=== PATIENT | female | born 1970 | race Caucasian/White ===

== ENCOUNTER 2019-01-01 08:52 | Outpatient (RCR) | payer SELFPAY ==
[2019-01-01 09:07] VITALS: BP 155/106; PULSE 73; RESP 16; TEMP 36.4; BMI 39.9
[2019-01-01 15:13] LABS: Hematocrit 41.5 % (37-47); Hemoglobin 13.4 g/dl (12.0-15.0); Mean Corp Hgb Conc 32.3 g/gl (32-36); Mean Corpuscular Hgb 27.2 pg (27.0-32.0); Mean Corpuscular Volume 84.3 fL (81-99); Mean Platelet Vol. 11.2 fl (6.2-12.0); Platelet Count 236 K/mm3 (150-450); RBC Distribution Width CV 14.6 % (11.6-14.6); RBC Distribution Width SD 44.1 fl (35.1-43.9); Red Blood Count 4.92 M/mm3 (4.2-5.4); White Blood Count 8.9 K/mm3 (4.4-11.0)
[2019-01-01 15:17] LABS: Scan Indicated on CBC? Y/N NO
[2019-01-01 15:36] LABS: AST(SGOT) 24 U/L (15-37); Alanine Aminotransfer ALT/SGPT 41 U/L (13-56); Albumin, Serum 4.2 g/dL (3.2-5.0); Alkaline Phosphatase 37 U/L (45-117); Anion Gap 8 (5-15); BUN 9 mg/dL (7-18); Calcium,Total 9.5 mg/dL (8.5-10.1); Chloride 105 mmol/L (98-107); Creatinine, Serum 0.69 mg/dL (0.55-1.02); EST Glomerular Filtration Rate 97 mL/min (>60); Est Glom Filt Rate - Afr Amer 117 mL/min (>60); Estimated Creatinine Clearance 91.67 ml/min; Globulin 4.2 g/dL (2.2-4.2); Glucose 77 mg/dL (74-106); Potassium 4.1 mmol/L (3.5-5.1); Protein, Total 8.4 g/dL (6.4-8.2); Sodium Level 142 mmol/L (136-145)
[2019-01-01 15:37] LABS: Hemoglobin A1c 6.1 % (4.2-6.3)
--- NOTE | 2019-01-01 20:13 | PCM.WC.HP ---
(1) Ulcer of left lower extremity with fat layer exposed Status: Chronic Current Visit: Yes Code(s): L97.922 - Non-pressure chronic ulcer of unspecified part of left lower leg with fat layer exposed (2) Varicose veins of both lower extremities Status: Chronic Current Visit: Yes Code(s): I83.93 - Asymptomatic varicose veins of bilateral lower extremities (3) Bilateral lower extremity edema Status: Chronic Current Visit: Yes Code(s): R60.0 - Localized edema History of Present Illness Date of Service: 01/01/19 Chief Complaint: Nonhealing left lower extremity ulcer History of Wound: Ms. Barber is a 48-year-old who is in a stable state of health until about 6 months ago when she noted a left lower extremity ulcer. She denies any known precipitating factor. Initially started small and progressively increased to current size. Has been trying some wound care at home without any sustainable benefit. She denies any known history of diabetes mellitus. History of varicose veins with occasional lower extremity swelling. She also denies any known history of peripheral arterial disease. No tobacco abuse. Feels well otherwise. Past Medical History Past Medical History: Chronic Problems Ulcer of left lower extremity with fat layer exposed (Chronic) Varicose veins of both lower extremities (Chronic) Bilateral lower extremity edema (Chronic) Allergies/Adverse Reactions: Allergies procaine [From Novocain] Allergy (Verified 01/01/19 09:33) Other Home Medications: Ambulatory Orders Medication Instructions Recorded Amoxicillin 500 mg 01/01/19 Smoking Status: Never smoker Review of Systems Constitutional: Denies: Anorexia, Chills, Fever Eyes: Denies: Blurred vision, Pain, Redness HEENT: Denies: Difficulty Swallowing Cardiovascular: Denies: Chest Pain, Chest Pressure Respiratory: Denies: Hemoptysis Gastrointestinal: Denies: Abdominal Pain, Hematemesis, Vomiting Skin: Denies: Jaundice - Physical Exam Vital Signs Temp Pulse Resp BP 97.6 F L 73 16 155/106 H 01/01/19 09:07 01/01/19 09:07 01/01/19 09:07 01/01/19 09:07 General: Alert, Oriented x3, Cooperative, No apparent distress HEENT: Atraumatic, Normocephalic Oral: Moist Mucosa Neck: Supple Lungs: Normal air movement Cardiovascular: Regular rate, Regular Rhythm, Normal S1, Normal S2 Abdomen: Soft, Non Tender, Obese Extremities: No cyanosis, Edema Skin: Ulcer/ Wound Wound Measurements and Assessment WC - Nurse 1 - General Ulcer Measurement Start: 01/01/19 09:02 Freq: Status: Active Protocol: Activity Type Activity Date Activity User E-Sign Co-Sign Detail Recorded Client Recorded Date Recorded By Document 01/01/19 09:07 [facility] [id number] 01/01/19 09:28 [facility] 01/01/19 09:07 Wound Center Nurse 1 [Ulcer Assessment] #2- LT MEDIAL LE INFERIOR -Combined with other wound No -Current Size (cm) - Length 1.8 -Current Size (cm) - Width 1 -Current Size (cm) - Depth 0.1 -Total Square Cm 1.8 -Date of Last Picture (Recall this 01/01/19 field) -Photo Taken Yes -Epithelialization None Present -Tunneling No -Undermining/Tunneling No -Circular Undermining No -Exudate Amt None Present -Wound Margin Flat & Intact -Texture (Sandi-wound Skin Appearance) Assessed, Scarring -Moisture (Sandi-wound Skin Appearance Assessed,Dry/ ) Scaly -Color (Sandi-wound Skin Appearance) Assessed, Erythema -Temperature (Sandi-wound Skin No Abnormality Appearance) (Pt Warm) -Tenderness on Palpation (Sandi-wound No Skin Appearance) -Ulcer Cleansing Rinsed/ Irrigated with Saline -Foul Odor after Cleansing No #1- LT MEDIAL LE SUPERIOR -Combined with other wound No -Current Size (cm) - Length 0.8 -Current Size (cm) - Width 1.3 -Current Size (cm) - Depth 0.1 -Total Square Cm 1.04 -Date of Last Picture (Recall this 01/01/19 field) -Photo Taken Yes -Epithelialization None Present -Tunneling No -Undermining/Tunneling No -Circular Undermining No -Exudate Amt Small -Exudate Type Serous -Wound Margin Flat & Intact -Granulation Amt Medium (34-66%) -Granulation Quality Red -Slough/Fibrin Yes -Necrosis Amt Medium (34-66%) -Necrotic Tissue Type Adherent Slough -Texture (Sandi-wound Skin Appearance) Assessed, Scarring -Moisture (Sandi-wound Skin Appearance Assessed,Dry/ ) Scaly -Color (Sandi-wound Skin Appearance) Assessed, Erythema -Temperature (Sandi-wound Skin No Abnormality Appearance) (Pt Warm) -Tenderness on Palpation (Sandi-wound Yes Skin Appearance) -Ulcer Cleansing Rinsed/ Irrigated with Saline -Foul Odor after Cleansing No [Edema Assessment] -Lower Limb Edema Present Yes -Right Calf (cm) 46.4 -Right Ankle (cm) 24.1 -Left Calf (cm) 44.7 -Left Ankle (cm) 27 WC - Nurse 2 - General Ulcer CM Notes Start: 01/01/19 09:02 Freq: Status: Active Protocol: Activity Type Activity Date Activity User E-Sign Co-Sign Detail Recorded Client Recorded Date Recorded By Document 01/01/19 10:10 MW [id number] 01/01/19 10:14 MW 01/01/19 10:10 Wound Center Nurse 2 [Procedure/Treatment] #2- LT MEDIAL LE INFERIOR -Time 10:10 -Correct Patient Yes -Correct Side, Site, Position Yes -Correct Procedure Yes -Procedure Performed No -Post Debridement Size (cm) - Length 0 -Post Debridement Size (cm) - Width 0 -Post Debridement Size (cm) - Depth 0 -Total Square Cm 0 -Wound/Ulcer Outcome Healed- Epithelialized -Ulcer Cleansing Not Cleansed -Foul Odor after Cleansing No -Bioengineered Tissue No -Bleeding Controlled with NA -Treatment Response Procedure Tolerated Well #1- LT MEDIAL LE SUPERIOR -Time 10:11 -Correct Patient Yes -Correct Side, Site, Position Yes -Correct Procedure Yes -Procedure Performed Yes -Type of Procedure Debridement -Clinical Debridement Subcutaneous -Post Debridement Size (cm) - Length 1.1 -Post Debridement Size (cm) - Width 1.7 -Post Debridement Size (cm) - Depth 0.1 -Total Square Cm 1.87 -Wound/Ulcer Outcome Not Healed -Ulcer Cleansing Rinsed/ Irrigated with Saline -Foul Odor after Cleansing No -Bioengineered Tissue No -Bleeding Controlled with Pressure -Offloading No -Treatment Response Procedure Tolerated Well [See Physician Procedure note for Specifics] Pain Scale: 0-10 Numeric [Pain] -Is Patient Pain Free? Yes Neurological: Cranial nerves II-XII grossly intact Psych/Mental Status: Normal Affect Debridement Note Post-Debridement Measurements/Treatment [id number] - Nurse 2 - General Ulcer CM Notes Start: 01/01/19 09:02 Freq: Status: Active Protocol: Activity Type Activity Date Activity User E-Sign Co-Sign Detail Recorded Client Recorded Date Recorded By Document 01/01/19 10:10 MW [id number] 01/01/19 10:14 MW 01/01/19 10:10 Wound Center Nurse 2 #2- LT MEDIAL LE INFERIOR -Time 10:10 -Correct Patient Yes -Correct Side, Site, Position Yes -Correct Procedure Yes -Procedure Performed No -Post Debridement Size (cm) - Length 0 -Post Debridement Size (cm) - Width 0 -Post Debridement Size (cm) - Depth 0 -Total Square Cm 0 -Wound/Ulcer Outcome Healed- Epithelialized -Ulcer Cleansing Not Cleansed -Foul Odor after Cleansing No -Bioengineered Tissue No -Bleeding Controlled with NA -Treatment Response Procedure Tolerated Well #1- LT MEDIAL LE SUPERIOR -Time 10:11 -Correct Patient Yes -Correct Side, Site, Position Yes -Correct Procedure Yes -Procedure Performed Yes -Type of Procedure Debridement -Clinical Debridement Subcutaneous -Post Debridement Size (cm) - Length 1.1 -Post Debridement Size (cm) - Width 1.7 -Post Debridement Size (cm) - Depth 0.1 -Total Square Cm 1.87 -Wound/Ulcer Outcome Not Healed -Ulcer Cleansing Rinsed/ Irrigated with Saline -Foul Odor after Cleansing No -Bioengineered Tissue No -Bleeding Controlled with Pressure -Offloading No -Treatment Response Procedure Tolerated Well Pain Scale: 0-10 Numeric Is Patient Pain Free? Yes Wound debrided: Left lower extremity (medial) Wound Grade/Stage: Stage II Type of Debridement: Excisional debridement Depth: Down to and including healthy tissue, in the subcutaneous layer Percentage of wound debrided: 100 Instrument Used: 3mm curette Tissue Removed: Slough and devitalized tissue Severity: Fat Layer Exposed Amount of bleeding with debridement: Mild Bleeding Controlled with: Pressure Patient tolerated procedure well Assessment/Plan Active Problems Ulcer of left lower extremity with fat layer exposed (Chronic) Varicose veins of both lower extremities (Chronic) Bilateral lower extremity edema (Chronic) Assessment: Same as above. Plan: Debridement done as documented above, procedure was well-tolerated. CBC, CMP, A1c, arterial and venous studies ordered. Promogran daily with Adaptic over top. Spandgrip for edema management. Advised to use hypoallergenic clothi detergentsng/stockings/ due to concerns for surrounding dermatitis. Increased protein intake also recommended. Advised to elevate lower extremities when seated and in bed. Follow-up in 2 weeks. She was advised to call with any questions or concerns. This note was generated with [employer] dictation software. It may contain incorrect words, spelling, and punctuation that were not noted in checking the note before signing.
== END 2019-01-05 23:59 ==
LOC: WC 08:52
PROVIDERS: Family Provider Family Medicine; PCP Family Medicine; Visit Provider Internal Medicine
DX: I83.028 Varicose veins of left lower extremity with ulcer other part of lower leg (principal); L97.822 Non-pressure chronic ulcer of other part of left lower leg with fat layer exposed; R60.0 Localized edema; I83.91 Asymptomatic varicose veins of right lower extremity
CPT/HCPCS: 11042; 80053; 83036; 85027; 99203; G0463

== ENCOUNTER 2019-02-05 09:30 | Outpatient (RCR) | payer SELFPAY ==
[2019-01-06 01:10] VITALS: BP 155/106; PULSE 73; RESP 16; TEMP 36.4
[2019-01-15 09:58] VITALS: BP 146/93; PULSE 77; RESP 18; TEMP 36.6; BMI 39.9
--- NOTE | 2019-01-15 10:46 | PCM.WC.PN ---
(1) Ulcer of left lower extremity with fat layer exposed Status: Chronic Current Visit: Yes Code(s): L97.922 - Non-pressure chronic ulcer of unspecified part of left lower leg with fat layer exposed (2) Bilateral lower extremity edema Status: Chronic Current Visit: Yes Code(s): R60.0 - Localized edema (3) Varicose veins of both lower extremities Status: Chronic Current Visit: Yes Code(s): I83.93 - Asymptomatic varicose veins of bilateral lower extremities Type of Wound Date of Service: 01/15/19 Chief Complaint: Nonhealing left lower extremity ulcer History of Wound: Ms. Barber is a 48-year-old who is in a stable state of health until about 6 months ago when she noted a left lower extremity ulcer. She denies any known precipitating factor. Initially started small and progressively increased to current size. Has been trying some wound care at home without any sustainable benefit. She denies any known history of diabetes mellitus. History of varicose veins with occasional lower extremity swelling. She also denies any known history of peripheral arterial disease. No tobacco abuse. Feels well otherwise. Progress of Wound: Improving. No new concerns at this time. - Physical Exam Vital Signs Temp Pulse Resp BP 97.8 F 77 18 146/93 H 01/15/19 09:58 01/15/19 09:58 01/15/19 09:58 01/15/19 09:58 General: Alert, Oriented x3, Cooperative, No apparent distress HEENT: Atraumatic, Normocephalic Oral: Moist Mucosa Neck: Supple Lungs: Normal air movement Extremities: No cyanosis, Edema Skin: Ulcer/ Wound Wound Measurements and Assessment WC - Nurse 1 - General Ulcer Measurement Start: 01/15/19 09:58 Freq: Status: Active Protocol: Activity Type Activity Date Activity User E-Sign Co-Sign Detail Recorded Client Recorded Date Recorded By Document 01/15/19 09:58 DL [id number] 01/15/19 10:03 DL 01/15/19 09:58 Wound Center Nurse 1 [Ulcer Assessment] #1- LT MEDIAL LE SUPERIOR -Current Size (cm) - Length 0.7 -Current Size (cm) - Width 1 -Current Size (cm) - Depth 0.2 -Total Square Cm 0.7 -Photo Taken No -Exudate Amt Small -Exudate Type Serosanguineous -Wound Margin Distinct, Outline Attached -Granulation Amt Medium (34-66%) -Granulation Quality [place] -Necrosis Amt Medium (34-66%) -Necrotic Tissue Type Adherent Slough -Structure Exposed N/A -Texture (Sandi-wound Skin Appearance) Localized Edema ,Scarring -Moisture (Sandi-wound Skin Appearance No Abnormality ) -Color (Sandi-wound Skin Appearance) Erythema,Rubor -Temperature (Sandi-wound Skin No Abnormality Appearance) (Pt Warm) -Tenderness on Palpation (Sandi-wound Yes Skin Appearance) -Ulcer Cleansing Rinsed/ Irrigated with Saline -Foul Odor after Cleansing No -Anesthetic Used 5% Lidocaine Gel [Edema Assessment] -Left Calf (cm) 42.5 -Left Ankle (cm) 24 WC - Nurse 2 - General Ulcer CM Notes Start: 01/15/19 09:58 Freq: Status: Active Protocol: Activity Type Activity Date Activity User E-Sign Co-Sign Detail Recorded Client Recorded Date Recorded By Document 01/15/19 10:39 MW [id number] 01/15/19 10:43 MW 01/15/19 10:39 Wound Center Nurse 2 [Procedure/Treatment] #1- LT MEDIAL LE SUPERIOR -Time 10:40 -Correct Patient Yes -Correct Side, Site, Position Yes -Correct Procedure Yes -Procedure Performed Yes -Type of Procedure Debridement -Clinical Debridement Subcutaneous -Post Debridement Size (cm) - Length 0.7 -Post Debridement Size (cm) - Width 1.0 -Post Debridement Size (cm) - Depth 0.1 -Total Square Cm 0.70 -Wound/Ulcer Outcome Not Healed -Ulcer Cleansing Rinsed/ Irrigated with Saline -Foul Odor after Cleansing No -Bioengineered Tissue No -Bleeding Controlled with Pressure -Offloading No -Treatment Response Procedure Tolerated Well [See Physician Procedure note for Specifics] Pain Scale: 0-10 Numeric [Pain] -Is Patient Pain Free? Yes Musculoskeletal: No Muscle Wasting Neurological: Cranial nerves II-XII grossly intact Psych/Mental Status: Normal Affect Debridement Note Post-Debridement Measurements/Treatment WC - Nurse 2 - General Ulcer CM Notes Start: 01/15/19 09:58 Freq: Status: Active Protocol: Activity Type Activity Date Activity User E-Sign Co-Sign Detail Recorded Client Recorded Date Recorded By Document 01/15/19 10:39 MW [id number] 01/15/19 10:43 MW 01/15/19 10:39 Wound Center Nurse 2 #1- LT MEDIAL LE SUPERIOR -Time 10:40 -Correct Patient Yes -Correct Side, Site, Position Yes -Correct Procedure Yes -Procedure Performed Yes -Type of Procedure Debridement -Clinical Debridement Subcutaneous -Post Debridement Size (cm) - Length 0.7 -Post Debridement Size (cm) - Width 1.0 -Post Debridement Size (cm) - Depth 0.1 -Total Square Cm 0.70 -Wound/Ulcer Outcome Not Healed -Ulcer Cleansing Rinsed/ Irrigated with Saline -Foul Odor after Cleansing No -Bioengineered Tissue No -Bleeding Controlled with Pressure -Offloading No -Treatment Response Procedure Tolerated Well Pain Scale: 0-10 Numeric Is Patient Pain Free? Yes Wound debrided: Left lower extremity Wound Grade/Stage: Stage II Type of Debridement: Excisional debridement Depth: Down to and including healthy tissue, in the subcutaneous layer Percentage of wound debrided: 100 Instrument Used: 3mm curette Tissue Removed: slough and devitalized tissue Severity: Fat Layer Exposed Amount of bleeding with debridement: Mild Bleeding Controlled with: Pressure Patient tolerated procedure well Assessment/Plan Active Problems Ulcer of left lower extremity with fat layer exposed (Chronic) Varicose veins of both lower extremities (Chronic) Bilateral lower extremity edema (Chronic) Assessment: Same as above. Plan: Improving. Debridement done as documented above, procedure was well-tolerated. Continue Promogran daily with Adaptic over top. Spandgrip for edema management. Advised to use hypoallergenic clothing detergents/stockings/ due to concerns for surrounding dermatitis. It has however improved. Increased protein intake also recommended. Advised to elevate lower extremities when seated and in bed. Follow-up in 1 week. She was advised to call with any questions or concerns. This note was generated with [employer] dictation software. It may contain incorrect words, spelling, and punctuation that were not noted in checking the note before signing.
[2019-01-22 11:12] VITALS: BP 147/81; PULSE 81; RESP 16; TEMP 37.2; BMI 39.9
--- NOTE | 2019-01-22 11:58 | PCM.WC.PN ---
(1) Ulcer of left lower extremity with fat layer exposed Status: Chronic Current Visit: Yes Code(s): L97.922 - Non-pressure chronic ulcer of unspecified part of left lower leg with fat layer exposed (2) Bilateral lower extremity edema Status: Chronic Current Visit: Yes Code(s): R60.0 - Localized edema (3) Varicose veins of both lower extremities Status: Chronic Current Visit: Yes Code(s): I83.93 - Asymptomatic varicose veins of bilateral lower extremities Type of Wound Date of Service: 01/22/19 Chief Complaint: Nonhealing left lower extremity ulcer History of Wound: Ms. Barber is a 48-year-old who is in a stable state of health until about 6 months ago when she noted a left lower extremity ulcer. She denies any known precipitating factor. Initially started small and progressively increased to current size. Has been trying some wound care at home without any sustainable benefit. She denies any known history of diabetes mellitus. History of varicose veins with occasional lower extremity swelling. She also denies any known history of peripheral arterial disease. No tobacco abuse. Feels well otherwise. Progress of Wound: Has had problems with dressing staying on this week. - Physical Exam Vital Signs Temp Pulse Resp BP 98.9 F 81 16 147/81 H 01/22/19 11:12 01/22/19 11:12 01/22/19 11:12 01/22/19 11:12 General: Alert, Oriented x3, Cooperative, No apparent distress HEENT: Atraumatic, Normocephalic Oral: Moist Mucosa Neck: Supple Lungs: Normal air movement Extremities: Edema Skin: Ulcer/ Wound Wound Measurements and Assessment WC - Nurse 1 - General Ulcer Measurement Start: 01/15/19 09:58 Freq: Status: Active Protocol: Activity Type Activity Date Activity User E-Sign Co-Sign Detail Recorded Client Recorded Date Recorded By Document 01/22/19 11:12 BS [id number] 01/22/19 11:24 BS 01/22/19 11:12 Wound Center Nurse 1 [Ulcer Assessment] #1- LT MEDIAL LE SUPERIOR -Combined with other wound No -Current Size (cm) - Length 0.7 -Current Size (cm) - Width 1.3 -Current Size (cm) - Depth 0.1 -Total Square Cm 0.91 -Epithelialization Small 1-33% -Tunneling No -Undermining/Tunneling No -Classification - Thickness Full Thickness without Exposed Support Structure -Granulation Amt Small (1-33%) -Granulation Quality [place],Red -Slough/Fibrin No -Texture (Sandi-wound Skin Appearance) Assessed, Localized Edema -Moisture (Sandi-wound Skin Appearance Assessed ) -Color (Sandi-wound Skin Appearance) Assessed, Hemosiderin Staining -Temperature (Sandi-wound Skin No Abnormality Appearance) (Pt Warm) -Tenderness on Palpation (Sandi-wound No Skin Appearance) -Ulcer Cleansing Rinsed/ Irrigated with Saline -Foul Odor after Cleansing No -Anesthetic Used 5% Lidocaine Gel [Edema Assessment] -Lower Limb Edema Present Yes -Point of measurement (cm from the 18 medial instep) -Point of Measurement (cm from the 9.5 medial instep) -Point of measurement (cm from the 17 medial instep) -Point of Measurement (cm from the 10 medial instep) WC - Nurse 2 - General Ulcer CM Notes Start: 01/15/19 09:58 Freq: Status: Active Protocol: Activity Type Activity Date Activity User E-Sign Co-Sign Detail Recorded Client Recorded Date Recorded By Document 01/22/19 11:53 MW [id number] 01/22/19 11:55 MW 01/22/19 11:53 Wound Center Nurse 2 [Procedure/Treatment] #1- LT MEDIAL LE SUPERIOR -Time 11:53 -Correct Patient Yes -Correct Side, Site, Position Yes -Correct Procedure Yes -Procedure Performed Yes -Type of Procedure Debridement -Clinical Debridement Subcutaneous -Post Debridement Size (cm) - Length 0.8 -Post Debridement Size (cm) - Width 1.1 -Post Debridement Size (cm) - Depth 0.1 -Total Square Cm 0.88 -Wound/Ulcer Outcome Not Healed -Ulcer Cleansing Rinsed/ Irrigated with Saline -Foul Odor after Cleansing No -Bioengineered Tissue No -Bleeding Controlled with Pressure -Offloading No -Treatment Response Procedure Tolerated Well [See Physician Procedure note for Specifics] Pain Scale: 0-10 Numeric [Pain] -Is Patient Pain Free? Yes Musculoskeletal: No Muscle Wasting Neurological: Cranial nerves II-XII grossly intact Psych/Mental Status: Normal Affect Debridement Note Post-Debridement Measurements/Treatment WC - Nurse 2 - General Ulcer CM Notes Start: 01/15/19 09:58 Freq: Status: Active Protocol: Activity Type Activity Date Activity User E-Sign Co-Sign Detail Recorded Client Recorded Date Recorded By Document 01/15/19 10:39 MW [id number] 01/15/19 10:43 MW Document 01/22/19 11:53 MW [id number] 01/22/19 11:55 MW 01/15/19 01/22/19 10:39 11:53 Wound Center Nurse 2 #1- LT MEDIAL LE SUPERIOR -Time 10:40 11:53 -Correct Patient Yes Yes -Correct Side, Site, Position Yes Yes -Correct Procedure Yes Yes -Procedure Performed Yes Yes -Type of Procedure Debridement Debridement -Clinical Debridement Subcutaneous Subcutaneous -Post Debridement Size (cm) - Length 0.7 0.8 -Post Debridement Size (cm) - Width 1.0 1.1 -Post Debridement Size (cm) - Depth 0.1 0.1 -Total Square Cm 0.70 0.88 -Wound/Ulcer Outcome Not Healed Not Healed -Ulcer Cleansing Rinsed/ Rinsed/ Irrigated with Irrigated with Saline Saline -Foul Odor after Cleansing No No -Bioengineered Tissue No No -Bleeding Controlled with Pressure Pressure -Offloading No No -Treatment Response Procedure Procedure Tolerated Well Tolerated Well Pain Scale: 0-10 Numeric Is Patient Pain Free? Yes Yes Wound debrided: Left lower extremity ( Medial ) Wound Grade/Stage: Stage II Type of Debridement: Excisional debridement Anesthesia Used: 5% Lidocaine Gel Depth: Down to and including healthy tissue, in the subcutaneous layer Percentage of wound debrided: 100 Instrument Used: 3mm curette Tissue Removed: Slough and devitalized tissue Severity: Fat Layer Exposed Amount of bleeding with debridement: Mild Bleeding Controlled with: Pressure Patient tolerated procedure well Assessment/Plan Active Problems Ulcer of left lower extremity with fat layer exposed (Chronic) Varicose veins of both lower extremities (Chronic) Bilateral lower extremity edema (Chronic) Assessment: Same as above. Plan: Some worsening noted this week. States that she has had concerns with dressing staying on this week. Debridement done as documented above, procedure was well-tolerated. Continue Promogran daily to twice daily with Adaptic over top. Will try guaze and blue tape to secure. Spandgrip for edema management. Advised to use hypoallergenic clothing detergents/stockings/ due to concerns for surrounding dermatitis. It has however improved. Increased protein intake also recommended. Advised to elevate lower extremities when seated and in bed. Follow-up in 1 week. She was advised to call with any questions or concerns. This note was generated with [employer] dictation software. It may contain incorrect words, spelling, and punctuation that were not noted in checking the note before signing.
--- NOTE | 2019-01-22 13:03 | VDLE_ITS ---
Reason For Study: Ulcer RIGHT LEFT CFV is compressible, spontaneous, phasic, CFV is compressible, spontaneous, phasic, competent and demonstrates normal competent, and demonstrates normal augmentation. augmentation. FV is compressible, spontaneous, phasic, FV is compressible, spontaneous, phasic, competent and demonstrates normal competent and demonstrates normal augmentation. augmentation. POP V is compressible, spontaneous, phasic, POP V is compressible, spontaneous, phasic, competent and demonstrates normal competent and demonstrates normal augmentation. augmentation. T/P Trunk is compressible. T/P Trunk is compressible. PTV is compressible. PTV is compressible. Rt PeroV is dilated and non compressible LT PerV is compressible. consistent with acute DVT Lt SFJ is Incompetent with reflux greater than 0.5 sec and measures 1.53cm x 1.93cm Rt SFJ is Competent and measures 0.67cm x 0.70cm Lt GSV is Incompetent with reflux greater than 0.5 sec and measures 0.84cm x 0.89cm at Rt GSV is Incompetent with reflux greater prox thigh and 1.12cm x 1.17cm at the knee than 0.5 sec and measures 0.23cm x 0.23cm at prox thigh and 0.17cm x 0.18cm at the knee Lt SSV is Incompetent with reflux greater than 0.5 sec and measures 0.27cm x 0.33cm. Rt SSV is Incompetent with reflux greater than 0.5 sec and a diameter of 0.40cm x 0.41cm. Procedure Exam performed in department. [facility]. Interpretation Summary Acute deep vein thrombosis is noted in the right peroneal vein. The remainder of the right lower extremity deep venous system is patent and compressible. Deep veins of the left lower extremity are patent and compressible segmentally. There is no evidence of left lower extremity deep vein thrombosis. Valvular competence appears intact within the proximal deep venous systems bilaterally. The greater saphenous veins appear bilaterally patent and compressible segmentally. The right sapheno-femoral junction is competent . The left sapheno-femoral junction is incompetent . Segmental valvular incompetence is noted within the greater saphenous veins bilaterally. Small saphenous veins are patent and incompetent bilaterally. Ordering Physician: Elian Ortiz Referring Physician: Sy Barba Performed By: Marisol Whitmore RDCS, RVT
[2019-02-05 09:04] VITALS: BP 147/82; PULSE 77; RESP 18; TEMP 36.2; BMI 39.9
--- NOTE | 2019-02-05 11:53 | PCM.WC.PN ---
(1) Ulcer of left lower extremity with fat layer exposed Status: Chronic Current Visit: Yes Code(s): L97.922 - Non-pressure chronic ulcer of unspecified part of left lower leg with fat layer exposed (2) Bilateral lower extremity edema Status: Chronic Current Visit: Yes Code(s): R60.0 - Localized edema (3) Varicose veins of both lower extremities Status: Chronic Current Visit: Yes Code(s): I83.93 - Asymptomatic varicose veins of bilateral lower extremities Type of Wound Date of Service: 02/05/19 Chief Complaint: Nonhealing left lower extremity ulcer History of Wound: Ms. Barber is a 48-year-old who is in a stable state of health until about 6 months ago when she noted a left lower extremity ulcer. She denies any known precipitating factor. Initially started small and progressively increased to current size. Has been trying some wound care at home without any sustainable benefit. She denies any known history of diabetes mellitus. History of varicose veins with occasional lower extremity swelling. She also denies any known history of peripheral arterial disease. No tobacco abuse. Feels well otherwise. Progress of Wound: No new concerns at this time. Curently on Xarelto for newly diagnosed acute DVT. - Physical Exam Vital Signs Temp Pulse Resp BP 97.1 F L 77 18 147/82 H 02/05/19 09:04 02/05/19 09:04 02/05/19 09:04 02/05/19 09:04 General: Alert, Oriented x3, Cooperative, No apparent distress HEENT: Atraumatic, Normocephalic Oral: Moist Mucosa Neck: Supple Lungs: Normal air movement Extremities: No cyanosis, Edema Wound Measurements and Assessment WC - Nurse 1 - General Ulcer Measurement Start: 01/15/19 09:58 Freq: Status: Active Protocol: Activity Type Activity Date Activity User E-Sign Co-Sign Detail Recorded Client Recorded Date Recorded By Document 02/05/19 09:04 DL [id number] 02/05/19 09:07 DL 02/05/19 09:04 Wound Center Nurse 1 [Ulcer Assessment] #1- LT MEDIAL LE SUPERIOR -Current Size (cm) - Length 0.5 -Current Size (cm) - Width 1 -Current Size (cm) - Depth 0.1 -Total Square Cm 0.5 -Photo Taken No -Exudate Amt Small -Exudate Type Serosanguineous -Wound Margin Distinct, Outline Attached -Granulation Amt Small (1-33%) -Granulation Quality [place] -Necrosis Amt Small (1-33%) -Necrotic Tissue Type Adherent Slough -Structure Exposed N/A -Texture (Sandi-wound Skin Appearance) Scarring -Moisture (Sandi-wound Skin Appearance No Abnormality ) -Color (Sandi-wound Skin Appearance) Rubor -Temperature (Sandi-wound Skin No Abnormality Appearance) (Pt Warm) -Tenderness on Palpation (Sandi-wound No Skin Appearance) -Ulcer Cleansing Rinsed/ Irrigated with Saline -Foul Odor after Cleansing No -Anesthetic Used 5% Lidocaine Gel [Edema Assessment] -Right Calf (cm) 44 -Right Ankle (cm) 23.7 -Left Calf (cm) 44 -Left Ankle (cm) 24.5 WC - Nurse 2 - General Ulcer CM Notes Start: 01/15/19 09:58 Freq: Status: Active Protocol: Activity Type Activity Date Activity User E-Sign Co-Sign Detail Recorded Client Recorded Date Recorded By Document 02/05/19 09:15 MW [id number] 02/05/19 09:17 MW 02/05/19 09:15 Wound Center Nurse 2 [Procedure/Treatment] #1- LT MEDIAL LE SUPERIOR -Time 09:15 -Correct Patient Yes -Correct Side, Site, Position Yes -Correct Procedure Yes -Procedure Performed Yes -Type of Procedure Debridement -Clinical Debridement Subcutaneous -Post Debridement Size (cm) - Length 0.4 -Post Debridement Size (cm) - Width 1.1 -Post Debridement Size (cm) - Depth 0.2 -Total Square Cm 0.44 -Wound/Ulcer Outcome Not Healed -Ulcer Cleansing Rinsed/ Irrigated with Saline -Foul Odor after Cleansing No -Bioengineered Tissue No -Bleeding Controlled with Pressure -Offloading No -Treatment Response Procedure Tolerated Well [See Physician Procedure note for Specifics] Pain Scale: 0-10 Numeric [Pain] -Is Patient Pain Free? Yes Musculoskeletal: No Muscle Wasting Neurological: Cranial nerves II-XII grossly intact Psych/Mental Status: Normal Affect Debridement Note Post-Debridement Measurements/Treatment WC - Nurse 2 - General Ulcer CM Notes Start: 01/15/19 09:58 Freq: Status: Active Protocol: Activity Type Activity Date Activity User E-Sign Co-Sign Detail Recorded Client Recorded Date Recorded By Document 01/15/19 10:39 MW [id number] 01/15/19 10:43 MW Document 01/22/19 11:53 MW [id number] 01/22/19 11:55 MW Document 02/05/19 09:15 MW [id number] 02/05/19 09:17 MW 01/15/19 01/22/19 02/05/19 10:39 11:53 09:15 Wound Center Nurse 2 #1- LT MEDIAL LE SUPERIOR -Time 10:40 11:53 09:15 -Correct Patient Yes Yes Yes -Correct Side, Site, Position Yes Yes Yes -Correct Procedure Yes Yes Yes -Procedure Performed Yes Yes Yes -Type of Procedure Debridement Debridement Debridement -Clinical Debridement Subcutaneous Subcutaneous Subcutaneous -Post Debridement Size (cm) - Length 0.7 0.8 0.4 -Post Debridement Size (cm) - Width 1.0 1.1 1.1 -Post Debridement Size (cm) - Depth 0.1 0.1 0.2 -Total Square Cm 0.70 0.88 0.44 -Wound/Ulcer Outcome Not Healed Not Healed Not Healed -Ulcer Cleansing Rinsed/ Rinsed/ Rinsed/ Irrigated with Irrigated with Irrigated with Saline Saline Saline -Foul Odor after Cleansing No No No -Bioengineered Tissue No No No -Bleeding Controlled with Pressure Pressure Pressure -Offloading No No No -Treatment Response Procedure Procedure Procedure Tolerated Well Tolerated Well Tolerated Well Pain Scale: 0-10 Numeric Is Patient Pain Free? Yes Yes Yes Wound debrided: Left Leg Wound Grade/Stage: Stage II Type of Debridement: Excisional debridement Anesthesia Used: 4% Lidocaine Solution Depth: Down to and including healthy tissue, in the subcutaneous layer Percentage of wound debrided: 100 Instrument Used: 3mm curette Tissue Removed: Slough and devitalized tissue Severity: Fat Layer Exposed Amount of bleeding with debridement: Mild Bleeding Controlled with: Pressure Patient tolerated procedure well Assessment/Plan Active Problems Ulcer of left lower extremity with fat layer exposed (Chronic) Varicose veins of both lower extremities (Chronic) Bilateral lower extremity edema (Chronic) Assessment: Same as above. Plan: Improving. No new concerns at this time. Debridement done as documented above, procedure was well-tolerated. Continue Promogran daily to twice daily with Adaptic over top. Guaze to secure. Spandgrip for edema management. Venous studies with Left lower extremity venous incompetence. Advised to use hypoallergenic clothing detergents/stockings/ due to concerns for surrounding dermatitis. It has however improved. Increased protein intake also recommended. Advised to elevate lower extremities when seated and in bed. Follow-up in 2 week. She was advised to call with any questions or concerns. This note was generated with [employer] dictation software. It may contain incorrect words, spelling, and punctuation that were not noted in checking the note before signing.
== END 2019-02-05 23:59 ==
LOC: WC 09:30
PROVIDERS: Family Provider Family Medicine; PCP Family Medicine; Referring Provider Internal Medicine; Visit Provider Internal Medicine
DX: I83.028 Varicose veins of left lower extremity with ulcer other part of lower leg (principal); L97.822 Non-pressure chronic ulcer of other part of left lower leg with fat layer exposed; R60.0 Localized edema; I83.91 Asymptomatic varicose veins of right lower extremity
CPT/HCPCS: 11042; 93970

== ENCOUNTER 2019-02-26 10:15 | Outpatient (RCR) | payer SELFPAY ==
[2019-02-06 01:04] VITALS: BP 147/82; PULSE 77; RESP 18; TEMP 36.2
[2019-02-19 08:54] VITALS: BP 151/87; PULSE 78; RESP 18; TEMP 36.4; BMI 39.9
--- NOTE | 2019-02-19 09:22 | PCM.WC.PN ---
(1) Bilateral lower extremity edema Status: Chronic Current Visit: Yes Code(s): R60.0 - Localized edema (2) Ulcer of left lower extremity with fat layer exposed Status: Chronic Current Visit: Yes Code(s): L97.922 - Non-pressure chronic ulcer of unspecified part of left lower leg with fat layer exposed (3) Varicose veins of both lower extremities Status: Chronic Current Visit: Yes Code(s): I83.93 - Asymptomatic varicose veins of bilateral lower extremities Type of Wound Date of Service: 02/19/19 Chief Complaint: Nonhealing left lower extremity ulcer History of Wound: Ms. Barber is a 48-year-old who is in a stable state of health until about 6 months ago when she noted a left lower extremity ulcer. She denies any known precipitating factor. Initially started small and progressively increased to current size. Has been trying some wound care at home without any sustainable benefit. She denies any known history of diabetes mellitus. History of varicose veins with occasional lower extremity swelling. She also denies any known history of peripheral arterial disease. No tobacco abuse. Feels well otherwise. Progress of Wound: Ulcer healed per patient however, new areas of superficial opening noted. No other concerns. - Physical Exam Vital Signs Temp Pulse Resp BP 97.6 F L 78 18 151/87 H 02/19/19 08:54 02/19/19 08:54 02/19/19 08:54 02/19/19 08:54 General: Alert, Oriented x3, Cooperative, No apparent distress HEENT: Atraumatic, Normocephalic Oral: Moist Mucosa Neck: Supple Lungs: Normal air movement Abdomen: Non Tender, Obese Extremities: No cyanosis Skin: Ulcer/ Wound Wound Measurements and Assessment WC - Nurse 1 - General Ulcer Measurement Start: 02/19/19 08:54 Freq: Status: Active Protocol: Activity Type Activity Date Activity User E-Sign Co-Sign Detail Recorded Client Recorded Date Recorded By Document 02/19/19 08:54 DL [id number] 02/19/19 08:59 DL 02/19/19 08:54 Wound Center Nurse 1 [Ulcer Assessment] #1- LT MEDIAL LE SUPERIOR -Current Size (cm) - Length 0.7 -Current Size (cm) - Width 1.1 -Current Size (cm) - Depth 0.1 -Total Square Cm 0.77 -Photo Taken No -Exudate Amt Small -Exudate Type Serosanguineous -Wound Margin Distinct, Outline Attached -Granulation Amt Small (1-33%) -Granulation Quality [place] -Necrosis Amt Large (67-100%) -Necrotic Tissue Type Adherent Slough -Structure Exposed N/A -Texture (Sandi-wound Skin Appearance) Excoriation, Scarring -Moisture (Sandi-wound Skin Appearance No Abnormality ) -Color (Sandi-wound Skin Appearance) Erythema,Rubor -Temperature (Sandi-wound Skin No Abnormality Appearance) (Pt Warm) -Tenderness on Palpation (Sandi-wound No Skin Appearance) -Ulcer Cleansing Rinsed/ Irrigated with Saline -Foul Odor after Cleansing No -Anesthetic Used 5% Lidocaine Gel [Edema Assessment] -Right Calf (cm) 44.6 -Right Ankle (cm) 23.9 -Left Calf (cm) 44.5 -Left Ankle (cm) 24 WC - Nurse 2 - General Ulcer CM Notes Start: 02/19/19 08:54 Freq: Status: Active Protocol: Activity Type Activity Date Activity User E-Sign Co-Sign Detail Recorded Client Recorded Date Recorded By Document 02/19/19 09:07 [id number] 02/19/19 09:12 ANNY 02/19/19 09:07 Wound Center Nurse 2 [Procedure/Treatment] #1- LT MEDIAL LE SUPERIOR -Time 09:12 -Correct Patient Yes -Correct Side, Site, Position Yes -Correct Procedure Yes -Procedure Performed Yes -Type of Procedure Debridement -Clinical Debridement Selective -Post Debridement Size (cm) - Length 0.1 -Post Debridement Size (cm) - Width 0.1 -Post Debridement Size (cm) - Depth 0.1 -Total Square Cm 0.01 -Wound/Ulcer Outcome Not Healed -Ulcer Cleansing Rinsed/ Irrigated with Saline -Foul Odor after Cleansing No -Bioengineered Tissue No -Bleeding Controlled with Pressure -Offloading No -Treatment Response Procedure Tolerated Well [See Physician Procedure note for Specifics] Pain Scale: 0-10 Numeric [Pain] -Is Patient Pain Free? Yes Musculoskeletal: No Muscle Wasting Neurological: Cranial nerves II-XII grossly intact Psych/Mental Status: Normal Affect Debridement Note Post-Debridement Measurements/Treatment WC - Nurse 2 - General Ulcer CM Notes Start: 02/19/19 08:54 Freq: Status: Active Protocol: Activity Type Activity Date Activity User E-Sign Co-Sign Detail Recorded Client Recorded Date Recorded By Document 02/19/19 09:07 ANNY [id number] 02/19/19 09:12 ANNY 02/19/19 09:07 Wound Center Nurse 2 #1- LT MEDIAL LE SUPERIOR -Time 09:12 -Correct Patient Yes -Correct Side, Site, Position Yes -Correct Procedure Yes -Procedure Performed Yes -Type of Procedure Debridement -Clinical Debridement Selective -Post Debridement Size (cm) - Length 0.1 -Post Debridement Size (cm) - Width 0.1 -Post Debridement Size (cm) - Depth 0.1 -Total Square Cm 0.01 -Wound/Ulcer Outcome Not Healed -Ulcer Cleansing Rinsed/ Irrigated with Saline -Foul Odor after Cleansing No -Bioengineered Tissue No -Bleeding Controlled with Pressure -Offloading No -Treatment Response Procedure Tolerated Well Pain Scale: 0-10 Numeric Is Patient Pain Free? Yes Wound debrided: Left lower extremity Wound Grade/Stage: Stage II Type of Debridement: Selective debridement Anesthesia Used: 4% Lidocaine Solution Depth: Down to and including healthy tissue, in the subcutaneous layer Percentage of wound debrided: 100 Instrument Used: 3mm curette Tissue Removed: Devitalized tissue Severity: Limited To Skin Breakdown Amount of bleeding with debridement: Mild Bleeding Controlled with: Pressure Patient tolerated procedure well Assessment/Plan Active Problems Ulcer of left lower extremity with fat layer exposed (Chronic) Varicose veins of both lower extremities (Chronic) Bilateral lower extremity edema (Chronic) Assessment: Same as above. Plan: Ulcer did heal but new areas of superficial skin tears. Debridement done as documented above, procedure was well tolerated. Switch to [employer] extra with adaptic over top. Change daily. Culture also taken. Spandgrip for edema management. Venous studies with Left lower extremity venous incompetence. Advised to use hypoallergenic clothing detergents/stockings/ due to concerns for surrounding dermatitis. It has however improved. Increased protein intake also recommended. Advised to elevate lower extremities when seated and in bed. She was aslo advised to keep area protected always until fully healed. She expressed understanding. Follow-up in 1 week. She was advised to call with any questions or concerns. This note was generated with [employer] dictation software. It may contain incorrect words, spelling, and punctuation that were not noted in checking the note before signing.
[2019-02-26 08:46] VITALS: BP 153/93; PULSE 76; RESP 18; TEMP 36.6; BMI 39.9
--- NOTE | 2019-02-26 09:13 | PCM.WC.PN ---
(1) Bilateral lower extremity edema Status: Chronic Current Visit: Yes Code(s): R60.0 - Localized edema (2) Ulcer of left lower extremity with fat layer exposed Status: Chronic Current Visit: Yes Code(s): L97.922 - Non-pressure chronic ulcer of unspecified part of left lower leg with fat layer exposed (3) Varicose veins of both lower extremities Status: Chronic Current Visit: Yes Code(s): I83.93 - Asymptomatic varicose veins of bilateral lower extremities Type of Wound Date of Service: 02/26/19 Chief Complaint: Nonhealing left lower extremity ulcer History of Wound: Ms. Barber is a 48-year-old who is in a stable state of health until about 6 months ago when she noted a left lower extremity ulcer. She denies any known precipitating factor. Initially started small and progressively increased to current size. Has been trying some wound care at home without any sustainable benefit. She denies any known history of diabetes mellitus. History of varicose veins with occasional lower extremity swelling. She also denies any known history of peripheral arterial disease. No tobacco abuse. Feels well otherwise. Progress of Wound: Healed. - Physical Exam Vital Signs Temp Pulse Resp BP 98 F 76 18 153/93 H 02/26/19 08:46 02/26/19 08:46 02/26/19 08:46 02/26/19 08:46 General: Alert, Oriented x3, Cooperative, No apparent distress HEENT: Atraumatic, Normocephalic Oral: Moist Mucosa Neck: Supple Lungs: Normal air movement Abdomen: Non Tender, Obese Extremities: No cyanosis, Edema Wound Measurements and Assessment WC - Nurse 1 - General Ulcer Measurement Start: 02/19/19 08:54 Freq: Status: Active Protocol: Activity Type Activity Date Activity User E-Sign Co-Sign Detail Recorded Client Recorded Date Recorded By Document 02/26/19 08:46 DL [id number] 02/26/19 08:51 DL 02/26/19 08:46 Wound Center Nurse 1 [Ulcer Assessment] #1- LT MEDIAL LE SUPERIOR -Current Size (cm) - Length 0.1 -Current Size (cm) - Width 0.1 -Current Size (cm) - Depth 0.1 -Total Square Cm 0.01 -Photo Taken No -Exudate Amt None Present -Wound Margin Flat & Intact -Granulation Amt Large (67-100%) -Granulation Quality [place] -Necrosis Amt Small (1-33%) -Necrotic Tissue Type Adherent Slough -Structure Exposed N/A -Texture (Sandi-wound Skin Appearance) Scarring -Moisture (Sandi-wound Skin Appearance No Abnormality ) -Color (Sandi-wound Skin Appearance) No Abnormality -Temperature (Sandi-wound Skin No Abnormality Appearance) (Pt Warm) -Tenderness on Palpation (Sandi-wound No Skin Appearance) -Ulcer Cleansing Rinsed/ Irrigated with Saline -Foul Odor after Cleansing No -Anesthetic Used 5% Lidocaine Gel [Edema Assessment] -Left Calf (cm) 43 -Left Ankle (cm) 24 - Nurse 2 - General Ulcer CM Notes Start: 02/19/19 08:54 Freq: Status: Active Protocol: Activity Type Activity Date Activity User E-Sign Co-Sign Detail Recorded Client Recorded Date Recorded By Document 02/26/19 09:11 MW [id number] 02/26/19 09:12 MW 02/26/19 09:11 Wound Center Nurse 2 [Procedure/Treatment] #1- LT MEDIAL LE SUPERIOR -Time 09:11 -Correct Patient Yes -Correct Side, Site, Position Yes -Correct Procedure Yes -Procedure Performed No -Post Debridement Size (cm) - Length 0 -Post Debridement Size (cm) - Width 0 -Post Debridement Size (cm) - Depth 0 -Total Square Cm 0 -Wound/Ulcer Outcome Healed- Epithelialized [See Physician Procedure note for Specifics] Pain Scale: 0-10 Numeric [Pain] -Is Patient Pain Free? Yes Musculoskeletal: No Muscle Wasting Neurological: Cranial nerves II-XII grossly intact Psych/Mental Status: Normal Affect Debridement Note Post-Debridement Measurements/Treatment - Nurse 2 - General Ulcer CM Notes Start: 02/19/19 08:54 Freq: Status: Active Protocol: Activity Type Activity Date Activity User E-Sign Co-Sign Detail Recorded Client Recorded Date Recorded By Document 02/19/19 09:07 [id number] 02/19/19 09:12 Document 02/26/19 09:11 MW [id number] 02/26/19 09:12 MW 02/19/19 02/26/19 09:07 09:11 Wound Center Nurse 2 #1- LT MEDIAL LE SUPERIOR -Time 09:12 09:11 -Correct Patient Yes Yes -Correct Side, Site, Position Yes Yes -Correct Procedure Yes Yes -Procedure Performed Yes No -Type of Procedure Debridement -Clinical Debridement Selective -Post Debridement Size (cm) - Length 0.1 0 -Post Debridement Size (cm) - Width 0.1 0 -Post Debridement Size (cm) - Depth 0.1 0 -Total Square Cm 0.01 0 -Wound/Ulcer Outcome Not Healed Healed- Epithelialized -Ulcer Cleansing Rinsed/ Irrigated with Saline -Foul Odor after Cleansing No -Bioengineered Tissue No -Bleeding Controlled with Pressure -Offloading No -Treatment Response Procedure Tolerated Well Pain Scale: 0-10 Numeric Is Patient Pain Free? Yes Yes No debridement was completed today Assessment/Plan Active Problems Ulcer of left lower extremity with fat layer exposed (Chronic) Varicose veins of both lower extremities (Chronic) Bilateral lower extremity edema (Chronic) Assessment: Same as above. Plan: Healed. Cultures reviewed. Minimal growth and possibly contaminant. Continue adaptic over top for 2 weeks. Compliance with compresion strongly recommended. She was also advised to elevate her extremities as often as possible, exercise and avoid idle standing. Her questions weer answered and she was advised to call with any further questions or concerns. Discharged from the wound clinic. This note was generated with [employer] software. It may contain incorrect words, spelling, and punctuation that were not noted in checking the note before signing.
== END 2019-03-08 23:59 ==
LOC: WC 10:15
PROVIDERS: Family Provider Family Medicine; PCP Family Medicine; Referring Provider Internal Medicine; Visit Provider Internal Medicine
DX: I83.028 Varicose veins of left lower extremity with ulcer other part of lower leg (principal); L97.822 Non-pressure chronic ulcer of other part of left lower leg with fat layer exposed; R60.0 Localized edema; I83.91 Asymptomatic varicose veins of right lower extremity
CPT/HCPCS: 87070; 87075; 87077; 87186; 87205; 97597; 99213; G0463